=== PATIENT | female | born 1960 | race Caucasian/White ===

== ENCOUNTER → 2016-07-21 | Outpatient (CLI) | payer BC ==
[~2016-07-21] MED LIST: BCPILLS PO
--- NOTE | 2016-07-21 16:03 | DIAGNOSTIC IMAGING REPORT ---
PELVIC ULTRASOUND CLINICAL HISTORY: DYSFUNCTIONAL UTERINE BLEEDING COMPARISON STUDY: CT of the abdomen and pelvis July 13, 2015. TECHNIQUE: Transabdominal and transvaginal sonography of the pelvis was performed. FINDINGS: The uterus measures 8.3 x 3.7 x 5 cm. The endometrium is partially obscured on this exam but measures approximately 4 mm in thickness. Several hypoechoic uterine lesions suggests fibroids and include a 2.4 x 2.3 x 1.8 cm right fundal mural fibroid and a 2.9 x 2.5 x 2.6 cm anterior mural fibroid. The right ovary was not visualized. The left ovary measured 2.8 x 1.2 x 1.7 cm. There is a 1.7 cm cyst or dominant follicle within the left ovary. There was no free fluid. There were no adnexal masses. IMPRESSION: 1. Two uterine fibroids, measuring up to 2.9 cm. 2. Obscured endometrium with suspected endometrial thickening, a nonspecific finding. If persistent dysfunctional bleeding, biopsy might be considered. 3. Nonvisualization of the right ovary. Electronically signed by: Alex Us M.D. 07/21/2016 4:02 PM Dictated Date/Time: 07/21/2016 3:56 PM
== END | disposition home or self-care (01) ==
LOC: C.ULTR 14:59
DX: N93.8 Other specified abnormal uterine and vaginal bleeding (principal); D25.9 Leiomyoma of uterus, unspecified

== ENCOUNTER → 2016-07-21 | Outpatient (CLI) | payer BC ==
--- NOTE | 2016-07-22 14:43 | MAMMOGRAPHY REPORT ---
BILATERAL DIGITAL SCREENING MAMMOGRAM TOMOSYNTHESIS WITH CAD: 07/21/2016 CLINICAL HISTORY: Routine screening. Patient has no complaints. TECHNIQUE: Breast tomosynthesis in addition to standard 2D mammography was performed. Current study was also evaluated with a Computer Aided Detection (CAD) system. COMPARISON: Comparison is made to exams dated: 09/17/2014 mammogram, 09/17/2014 mammogram, 10/04/2012 u ltrasound, 10/04/2012 mammogram, 09/27/2012 mammogram, and 11/03/2010 mammogram - [facility]. BREAST COMPOSITION: The tissue of both breasts is heterogeneously dense, which may obscure small mas ses. FINDINGS: No suspicious masses, calcifications, or areas of architectural distortion are noted in ei ther breast. There has been no significant interval change compared to prior exams. IMPRESSION: ACR BI-RADS CATEGORY 1: NEGATIVE There is no mammographic evidence of malignancy. A 1 year screening mammogram is recommended. The pa tient will receive written notification of the results. Approximately 10% of breast cancers are not detected with mammography. A negative mammographic report should not delay biopsy if a clinically suggestive mass is present. Lolly Fang M.D. ah/:07/21/2016 16:35:23 Supervisor [employer]: Amy SEXTON(R)(M), [facility] letter sent: Normal 1/2 BI-RADS Code: ACR BI-RADS Category 1: Negative
== END | disposition home or self-care (01) ==
LOC: C.MAMM 16:01
DX: Z12.31 Encounter for screening mammogram for malignant neoplasm of breast (principal)